=== PATIENT | male | born 2000 | race Caucasian/White ===

== ENCOUNTER 2024-02-21 22:59 | Emergency (ER) | payer SELFPAY ==
--- NOTE | ~2024-02-21 | CT_ITS ---
EXAMINATION: CT HEAD WITHOUT CONTRAST CT CERVICAL SPINE WITHOUT CONTRAST CLINICAL INFORMATION: Fall. Trauma. Pain. COMPARISON: None available. TECHNIQUE: Contiguous axial imaging was performed through the head and cervical spine without intravenous administration of contrast. Sagittal and coronal reformatted images also obtained. This CT examination was performed using dose optimization techniques as appropriate, variously including the following: *Automated exposure control *Adjustment of mA and/or kV according to patient size (this includes techniques or standardized protocols for targeted exams where dose is matched to indication/reason for exam; i.e. extremities or head) *Use of iterative reconstruction technique DLP: 1125 mGy-cm FINDINGS: The lateral, third and fourth ventricles are normally outlined. The cortical sulci and basal cisterns are normally outlined as well. There is no acute territorial defect, hemorrhage or midline shift. The extra-axial spaces are unremarkable. Calvarium/scalp: The calvarium is intact. There is left parietal scalp soft tissue swelling with a laceration. Maxillofacial sinuses and mastoids: Clear as visualized. Cervical spine: Motion slightly limits evaluation. The alignment is normal. The disc spaces are maintained. The spinal canal and neuroforamen are patent. Bone mineralization is normal. No fracture is seen. The soft tissues are unremarkable. The visualized upper lung sanchez are clear. CT/CT cervical spine wo IV con IMPRESSION: 1. No acute intracranial pathology. Left parietal scalp soft tissue swelling and laceration. 2. No evidence of acute cervical spine traumatic injury.
--- NOTE | ~2024-02-21 | CT_ITS ---
EXAMINATION: CT HEAD WITHOUT CONTRAST CT CERVICAL SPINE WITHOUT CONTRAST CLINICAL INFORMATION: Fall. Trauma. Pain. COMPARISON: None available. TECHNIQUE: Contiguous axial imaging was performed through the head and cervical spine without intravenous administration of contrast. Sagittal and coronal reformatted images also obtained. This CT examination was performed using dose optimization techniques as appropriate, variously including the following: *Automated exposure control *Adjustment of mA and/or kV according to patient size (this includes techniques or standardized protocols for targeted exams where dose is matched to indication/reason for exam; i.e. extremities or head) *Use of iterative reconstruction technique DLP: 1125 mGy-cm FINDINGS: The lateral, third and fourth ventricles are normally outlined. The cortical sulci and basal cisterns are normally outlined as well. There is no acute territorial defect, hemorrhage or midline shift. The extra-axial spaces are unremarkable. Calvarium/scalp: The calvarium is intact. There is left parietal scalp soft tissue swelling with a laceration. Maxillofacial sinuses and mastoids: Clear as visualized. Cervical spine: Motion slightly limits evaluation. The alignment is normal. The disc spaces are maintained. The spinal canal and neuroforamen are patent. Bone mineralization is normal. No fracture is seen. The soft tissues are unremarkable. The visualized upper lung sanchez are clear. CT/CT head/brain wo IV con IMPRESSION: 1. No acute intracranial pathology. Left parietal scalp soft tissue swelling and laceration. 2. No evidence of acute cervical spine traumatic injury.
[2024-02-21 23:04] VITALS: BP 125/71; PULSE 98; RESP 15; TEMP 36.9; O2SAT 97; BMI 23.3
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
[2024-02-21] MEDS: Haloperidol Lactate 5 MG/ML VIAL IVPUSH ×2 (23:16→23:29)
[2024-02-21] MEDS: diphenhydrAMINE HCL 50 MG/ML VIAL IVPUSH (23:16)
--- NOTE | 2024-02-21 23:30 | PC.NURSE ---
pt did not tolerate ct scan, is squirming in stretcher. brought back to room seizure pads placed to prevent injury, pt medicated per nov.
[2024-02-21 23:52] LABS: MANUAL DIFF FLAG NO
[2024-02-21 23:57] LABS: Basophils Percent Auto 0.7 % (0-2); Eosinophils Absolute Auto 0.1 X10*3/uL (0.0-0.4); Eosinophils Percent Auto 1.8 % (0-4); Hematocrit 38.6 % (42.0-52.0); Hemoglobin 13.3 g/dl (14.0-18.0); Imm Gran Abs Auto 0.02 X10*3/uL (0.00-0.03); Imm Gran Pct Auto 0.3 % (0.0-0.4); Lymphocytes Absolute Auto 1.4 X10*3/uL (1.2-4.9); Lymphocytes Percent Auto 22.2 % (20-40); Mean Corpuscular HGB Conc 34.5 g/dl (31.0-36.0); Mean Corpuscular Hemoglobin 30.6 pg (27.0-33.0); Mean Corpuscular Volume 88.7 fL (80.0-98.0); Mean Platelet Volume 9.7 fL (9.4-12.4); Monocytes Absolute Auto 0.4 X10*3/uL (0.1-1.2); Monocytes Percent Auto 6.6 % (2-11); Neutrophils Absolute Auto 4.2 x10*3/uL (2.0-8.3); Neutrophils Percent Auto 68.4 % (45-73); Platelet Count 258 X10*3/uL (160-400); Red Blood Count 4.35 X10*6/uL (4.60-5.80); Red Cell Distribution Width 12.8 % (11.0-16.0); White Blood Count 6.1 X10*3/uL (4.8-10.8)
[2024-02-22 00:09] LABS: Alanine Aminotransferase 30 U/L (0-40); Albumin Level 4.6 g/dL (3.5-5.0); Alkaline Phosphatase 90 U/L (39-117); Anion Gap 16 (12-20); Aspartate Amino Transferase 25 U/L (5-37); Bilirubin Total 0.2 mg/dL (0.0-1.0); Blood Urea Nitrogen 7 mg/dL (9-16); Calcium 9.4 mg/dL (8.4-10.2); Carbon Dioxide 24 mmol/L (22-29); Chloride 105 mmol/L (96-108); Creatinine Clr Calc Pharmacy 117.9; Estimated Glomerular Filt Rate > 60; Ethanol 367 mg/dL; Glucose Random 136 mg/dL (60-115); Lipase 24 U/L (8-78); Potassium 3.1 mmol/L (3.3-5.1); Sodium 142 mmol/L (135-145); Total Protein 8.1 g/dL (6.5-8.0)
[2024-02-22 00:10] LABS: INTERNATIONAL NORM RATIO 0.9 (0.9-1.1); Prothrombin Time 10.9 SEC (11.1-13.3)
[2024-02-22 00:12] LABS: Partial Thromboplastin Time 37.1 SEC (26.0-36.8)
--- NOTE | 2024-02-22 00:18 | PC.NURSE ---
on monitor patient down to 70s% on RA. pt repositioned up in bed and placed on nonrebreather, sats up to 99%. Dr. Briceno at bedside. unable to obtain end tital co2. on RA patient now 93-94%, placed on 2L NC.
--- NOTE | 2024-02-22 01:00 | PC.NURSE ---
pt resting comfortably in stretcher. resp even and unlabored. bleeding controlled of lac. per MD will stitch after pt is sober.
[2024-02-22 01:09] VITALS: BP 120/52; PULSE 97; RESP 18; TEMP 36.6; O2SAT 98
--- NOTE | 2024-02-22 02:31 | PC.NURSE ---
Addendum entered by Evelyn Clark 02/22/24 03:11: pt ambulated to bathroom with steady gait, helped to stretcher, resting comfortably. Original Note: pt is now alert and trying to get out of bed, combative with staff states he needs to leave home and theres nothing wrong with him. patient is not oriented. Dr. Briceno notified.
[2024-02-22 07:07] VITALS: BP 118/74; PULSE 86; RESP 20; TEMP 37; O2SAT 97
[2024-02-22 07:36] VITALS: BP 124/55; PULSE 82; RESP 16; TEMP 36.6; O2SAT 95
== END 2024-02-22 07:37 | disposition still patient (30) ==
PROVIDERS: Emergency Provider Emergency Medicine Emergency Medical Services
DX: S01.01XA Laceration without foreign body of scalp, initial encounter (principal); F10.129 Alcohol abuse with intoxication, unspecified; Y90.8 Blood alcohol level of 240 mg/100 ml or more; W22.8XXA Striking against or struck by other objects, initial encounter; Y93.9 Activity, unspecified; Y92.410 Unspecified street and highway as the place of occurrence of the external cause; Y99.9 Unspecified external cause status
CPT/HCPCS: 12001; 36415; 70450; 72125; 80053; 80307; 83690; 83735; 85025; 85610; 85730; 96374; 96375; 99283; 99284; J1200; J1630